=== PATIENT | female | born 1985 | race Caucasian/White ===

== ENCOUNTER 2016-10-11 13:06 | Emergency (ER) | payer BC, OTHER ==
[~2016-10-11] VITALS: Ht 162.6 cm; Wt 103.8 kg
[2016-10-11 13:09] VITALS: TEMP 36.8; Ht 162.6 cm; Wt 103.8 kg
[2016-10-11] MEDS ORDERED: SODIUM CHLORIDE 0.9% 1000ML 2,000 ML IV ONE (14:30)
[2016-10-11] MEDS ORDERED: ONDANSETRON INJ 2 MG/ML 2 ML VIAL IV PRN (14:30)
[2016-10-11] MEDS ORDERED: BCPILLS PO (14:35)
--- NOTE | 2016-10-11 14:41 | EMERGENCY ROOM VISIT NOTE ---
History Report prepared by [place]: Ap Contreras Under the Supervision of: Dr. Yordan Yanes M.D. First contact with patient: 14:25 Chief Complaint: ABDOMINAL PAIN Stated Complaint: SEVERE ABD. PAIN History of Present Illness The patient is a 31 year old female who presents to the Emergency Room with complaints of constant mid abdominal pain beginning thirteen hours prior to arrival. She currently rates her discomfort as a 5/10 in severity. The patient associates nausea, vomiting, and diarrhea with today's symptoms. She states she has been experiencing the diarrhea for eleven hours, and it is like a "colonoscopy cleanse". The patient notes she had a similar episode a month ago, but it resolved in an hour. She states she and her ate the same food for dinner last night, and her feels fine. The patient notes she is unable to keep anything down. She states she called the nurse line, who referred the patient to the ED. The patient notes her last menstrual period was two and a half months ago, which is normal for her. She denies recent sick contact. Source of History: patient Onset: 13 hours [employer] Position: abdomen (mid) Symptom Intensity: 5/10 Timing: constant Associated Symptoms: + abdominal pain, + diarrhea, + nausea, + vomiting Review of Systems All systems have been listed, reviewed, and are negative other than those previously mentioned. Please see Additional Medical History Sheet. Past Medical & Surgical Medical Problems: (1) Heartburn Family History Cancer Diabetes mellitus Gallbladder disease Hypertension Social History Smoking Status: Never Smoker Marital Status: Occupation Status: [employer] Current/Historical Medications Scheduled Control Pills ( Control Pills), 1 TAB PO DAILY Scheduled PRN Ondasetron Odt (Zofran Odt), 4 MG SL Q4 PRN for nausea Allergies Coded Allergies: No Known Allergies (Unverified , 10/11/16) Physical Exam Vital Signs Date Time Temp Pulse Resp B/P Pulse Ox O2 Delivery O2 Flow Rate FiO2 10/11/16 15:29 93 20 127/77 97 Room Air 10/11/16 14:06 118 131/76 98 Room Air 10/11/16 13:09 36.8 142 20 126/74 96 Room Air Physical Exam GENERAL: Patient awake, alert, oriented x 3. Patient follows commands. Patient does not appear toxic. Patient is adequately hydrated and well- nourished. SKIN: No erythema, pallor, cyanosis or rash HEENT: Normal head, pupils equal, reactive to light and accommodation. LUNGS: Clear to auscultation. No wheezes, no rales, no rhonchi. HEART: No murmurs. No gallops. No rubs ABDOMEN: Obese. Diffuse generalized mid abdominal tenderness. No rebound, no guarding, no hepatomegaly or splenomegaly. EXTREMITIES: No signs of trauma. No pedal or pretibial edema. No calf or thigh tenderness. NEUROLOGIC: Cranial nerves II-XII within normal limits. No gross motor sensory function deficits. Medical Decision & Procedures Laboratory Results 10/11/16 15:15 Red Blood Count 4.81, Mean Corpuscular Volume 90.0, Mean Corpuscular Hemoglobin 30.6, Mean Corpuscular Hemoglobin Concent 33.9, Mean Platelet Volume 10.2, Neutrophils (%) (Auto) 92.1, Lymphocytes (%) (Auto) 4.9, Monocytes (%) (Auto) 2.6, Eosinophils (%) (Auto) 0.0, Basophils (%) (Auto) 0.1, Neutrophils # (Auto) 10.99, Lymphocytes # (Auto) 0.58, Monocytes # (Auto) 0.31, Eosinophils # (Auto) 0.00, Basophils # (Auto) 0.01 10/11/16 15:15 Test 10/11/16 14:55 10/11/16 15:15 Urine Color ORANGE Urine Appearance CLEAR (CLEAR) Urine pH 5.0 (4.5-7.5) Urine Specific Koppel 1.042 (1.000-1.030) Urine Protein TRACE (NEG) Urine Glucose (UA) NEG (NEG) Urine Ketones 2+ (NEG) Urine Occult Blood NEG (NEG) Urine Nitrite NEG (NEG) Urine Bilirubin NEG (NEG) Urine Urobilinogen NEG (NEG) Urine Leukocyte Esterase NEG (NEG) Urine WBC (Auto) 1-5 /hpf (0-5) Urine RBC (Auto) 0-4 /hpf (0-4) Urine Hyaline Casts (Auto) 1-5 /lpf (0-5) Urine Epithelial Cells (Auto) 20-30 /lpf (0-5) Urine Bacteria (Auto) NEG (NEG) Urine Test NEG (NEG) White Blood Count 11.92 K/uL (4.8-10.8) Red Blood Count 4.81 M/uL (4.2-5.4) Hemoglobin 14.7 g/dL (12.0-16.0) Hematocrit 43.3 % (37-47) Mean Corpuscular Volume 90.0 fL (80-100) Mean Corpuscular Hemoglobin 30.6 pg (25-34) Mean Corpuscular Hemoglobin Concent 33.9 g/dl (32-36) Platelet Count 338 K/uL (130-400) Mean Platelet Volume 10.2 fL (7.4-10.4) Neutrophils (%) (Auto) 92.1 % Lymphocytes (%) (Auto) 4.9 % Monocytes (%) (Auto) 2.6 % Eosinophils (%) (Auto) 0.0 % Basophils (%) (Auto) 0.1 % Neutrophils # (Auto) 10.99 K/uL (1.4-6.5) Lymphocytes # (Auto) 0.58 K/uL (1.2-3.4) Monocytes # (Auto) 0.31 K/uL (0.11-0.59) Eosinophils # (Auto) 0.00 K/uL (0-0.5) Basophils # (Auto) 0.01 K/uL (0-0.2) RDW Standard Deviation 42.4 fL (36.4-46.3) RDW Coefficient of Variation 12.9 % (11.5-14.5) Immature Granulocyte % (Auto) 0.3 % Immature Granulocyte # (Auto) 0.03 K/uL (0.00-0.02) Anion Gap 12.0 mmol/L (3-11) Est Creatinine Clear Calc Drug Dose 101.9 ml/min Estimated GFR () 94.3 Estimated GFR (Non- 81.3 BUN/Creatinine Ratio 16.4 (10-20) Calcium Level 8.5 mg/dl (8.5-10.1) Total Bilirubin 0.7 mg/dl (0.2-1) Aspartate Amino Transf (AST/SGOT) 14 U/L (15-37) Alanine Aminotransferase (ALT/SGPT) 21 U/L (12-78) Alkaline Phosphatase 59 U/L (45-117) Total Protein 7.5 gm/dl (6.4-8.2) Albumin 3.5 gm/dl (3.4-5.0) Globulin 4.0 gm/dl (2.5-4.0) Albumin/Globulin Ratio 0.9 (0.9-2) Lipase 105 U/L (73-393) Laboratory results as stated above per my review. Medications Administered Medications (Trade) Dose Ordered Sig/Cari Route Start Time Stop Time Status Last Admin Dose Admin Sodium Chloride (Nss 1000ml) 2,000 ml @ 1,000 mls/hr Q2H ONCE IV 10/11/16 14:30 10/11/16 16:29 10/11/16 15:25 1,000 MLS/HR Ondansetron HCl (Zofran Inj) 4 mg Q1HWA PRN IV 10/11/16 14:30 11/10/16 14:29 10/11/16 15:25 4 MG ED Course 1422: Past medical records reviewed. The patient was evaluated in room C6. A complete history and physical examination was performed. 1430: Ordered Zofran Inj 4 mg IV, Sodium Chloride 2,000 ml @ 1,000 mls/hr IV. 1532: Reevaluated the patient at this time, and she is receiving fluids and feeling much better. 1622 IVs are in. Patient is feeling much better. Patient will be discharged. Medical Decision Nurses notes reviewed. Medical history sheet reviewed. Differential diagnosis includes but is not limited to: acute viral versus bacterial gastroenteritis, bowel obstruction, diverticulitis. Multiple labs and urinalysis were evaluated. Please see above. The patient is dehydrated. White count is minimally elevated. The patient appears to have a viral cause her symptoms. She has had similar bouts in the past. The patient was given Zofran and IV fluids which helped considerably. The patient will be discharged and encouraged to continue pushing fluids and taking Zofran as needed for nausea. Impression Primary Impression: Acute gastroenteritis Scribe Attestation The scribe's documentation has been prepared under my direction and personally reviewed by me in its entirety. I confirm that the note above accurately reflects all work, treatment, procedures, and medical decision making performed by me. Departure Information Dispostion Home / Self-Care Prescriptions Ondasetron Odt (ZOFRAN ODT) 4 Mg Tab 4 MG SL Q4 Y for nausea, #10 TAB Prov: Yordan Yanes M.D. 10/11/16 Referrals No Doctor, Assigned (PCP) Patient Instructions My [facility] [place] [employer] Additional Instructions 1 Zofran every 4 hours as needed for nausea. Drink 3-4 quarts of liquid over the next 24 hours. Follow-up with your family physician.
[2016-10-11 15:15] LABS: URINE APPEARANCE CLEAR (CLEAR); URINE COLOR ORANGE; URINE EPITHELIAL CELL AUTO 20-30 /lpf (0-5); URINE NITRITE NEG (NEG); URINE SPECIFIC GRAVITY 1.042 (1.000-1.030); UROBILINOGEN NEG (NEG); ZZUR CULT IF INDIC CLEAN CATCH NO
[2016-10-11 15:16] LABS: MANUAL MICROSCOPIC REQUIRED? NO; REVIEW REQ? NO; URINE BILIRUBIN NEG (NEG)
[2016-10-11 15:30] LABS: BASO % 0.1 %; BASO ABS # 0.01 K/uL (0-0.2); COMPLETE YES; HEMATOCRIT 43.3 % (37-47); IG% 0.3 %; LYMPH % 4.9 %; LYMPH ABS # 0.58 K/uL (1.2-3.4); MEAN CORPUSCULAR HEMOGLOBIN 30.6 pg (25-34); MEAN CORPUSCULAR HGB CONC 33.9 g/dl (32-36); MEAN PLATELET VOLUME 10.2 fL (7.4-10.4); MONO % 2.6 %; NEUT % 92.1 %; PLATELET COUNT 338 K/uL (130-400); RED BLOOD COUNT 4.81 M/uL (4.2-5.4); WHITE BLOOD COUNT 11.92 K/uL (4.8-10.8)
[2016-10-11 15:46] LABS: BUN/CREATININE RATIO 16.4 (10-20); CALCIUM 8.5 mg/dl (8.5-10.1); CREATININE 0.93 mg/dl (0.60-1.20)
[2016-10-11 15:49] LABS: ALB/GLOB RATIO 0.9 (0.9-2)
[2016-10-11] MEDS ORDERED: ONDA4TAB10 SL (15:58)
[2016-10-11] MEDS ORDERED: ONDANSETRON HOME PACK 4MG OD TAB ONE (16:45)
[2016-10-11 16:53] VITALS: BP 124/78; PULSE 97; O2SAT 100
== END 2016-10-11 16:56 | disposition home or self-care (01) ==
LOC: C.EDB 13:11 → C.EDC 16:56
DX: K52.9 Noninfective gastroenteritis and colitis, unspecified (principal); Z83.3 Family history of diabetes mellitus; Z82.49 Family history of ischemic heart disease and other diseases of the circulatory system; Z79.3 Long term (current) use of hormonal contraceptives

== ENCOUNTER → 2017-12-16 | Outpatient (CLI) | payer BC ==
[~2017-12-16] MED LIST: BCPILLS PO
--- NOTE | 2017-12-16 08:53 | DIAGNOSTIC IMAGING REPORT ---
(BARIUM SWALLOW) ESOPHAGUS CLINICAL HISTORY: R12 Heartburn 32-YEAR-OLD FEMALE WITH REFLUX SYMPTOMS COMPARISON STUDY: None FLUOROSCOPY TIME: 2.1 minutes. NUMBER OF FLUOROSCOPIC IMAGES: 25 FINDINGS: The patient swallowed effervescent granules and barium without difficulty. Rapid sequence swallows in the AP and lateral projections were within normal limits. No esophageal masses or ulcerations are visualized. There is no reflux. The patient swallowed one half inch barium tablet which freely passed into the stomach. IMPRESSION: Normal study Electronically signed by: Avni Valdez M.D. 12/16/2017 8:23 AM Dictated Date/Time: 12/16/2017 8:22 AM
== END | disposition home or self-care (01) ==
LOC: C.RAD 07:51
DX: R12 Heartburn (principal)